=== PATIENT | male | born 2005 | race Caucasian/White ===

== ENCOUNTER 2023-12-26 07:09 | Day surgery (SDC) | payer OTHER ==
[2023-12-23 08:37] VITALS: BMI 23.3
[2023-12-26] MEDS ORDERED: HYDROmorphone 0.5 MG/0.5 ML SYRINGE ONE (09:40)
[2023-12-26] MEDS ORDERED: Ondansetron PF 4 MG/2 ML Vial ONE (09:44)
[2023-12-26] MEDS ORDERED: Dexamethasone 4 mg/ml Vial ONE (09:44)
[2023-12-26] MEDS ORDERED: PROPOFOL 20 ML ONE (09:44)
[2023-12-26] MEDS ORDERED: Lidocaine 2% PF 5 ML VIAL ONE (09:44)
[2023-12-26] MEDS ORDERED: EPINEPHrine 1 MG/ML VIAL ONE (09:45)
[2023-12-26] MEDS ORDERED: Bupivacaine 0.25% HCL 30 ML VIAL ONE (09:45)
[2023-12-26] MEDS ORDERED: cefOXitin 2 GM VIAL ONE (09:54)
[2023-12-26] MEDS ORDERED: Sodium Chloride 0.9% 100 ML ONE (09:54)
[2023-12-26] MEDS ORDERED: Midazolam HCl 2 mg/2 ml Vial ONE (10:00)
[2023-12-26] MEDS ORDERED: HYDROcodone/Acetaminophen 5/325 mg Tablet ONE (13:07)
== END 2023-12-26 13:50 | disposition home or self-care (01) ==
LOC: SDC 07:09
PROVIDERS: ATTEND Surgery
PROC: 06BY0ZC Excision of Hemorrhoidal Plexus, Open Approach (ICD-10-PCS; principal; 2023-12-26)
DX: K64.3 Fourth degree hemorrhoids (principal); K64.4 Residual hemorrhoidal skin tags; F41.9 Anxiety disorder, unspecified
CPT/HCPCS: 88304; J0171; J0665; J0694; J1100; J1170; J2001; J2250; J2405; J2704